=== PATIENT | female | born 1980 | race Caucasian/White ===

== ENCOUNTER 2021-02-04 08:56 | Inpatient (IN) | payer MEDICAID ==
[~2021-02-04] VITALS: Ht 162.6 cm; Wt 61.5 kg
[2021-02-04] MEDS: LORazepam 2 MG TABLET PO PRN ×2 (12:40→20:45)
[2021-02-04 13:01] VITALS: BP 125/78
[2021-02-04 16:12] VITALS: BP 102/73
[2021-02-04 20:44] VITALS: BP 124/73
[2021-02-04] MEDS: ZOLPIDEM TARTRATE 10 MG TABLET PO PRN (20:45)
[2021-02-05 00:59] VITALS: BP 120/68
[2021-02-05 08:20] VITALS: BP 116/55
[2021-02-05] MEDS: LORazepam 2 MG TABLET PO PRN ×2 (09:55→17:15)
[2021-02-05] MEDS: DULoxetine HCL 20 MG CAPSULE PO SCH (10:35)
[2021-02-05] MEDS: NICOTINE 21 MG/24 HOUR PATCH TD SCH (11:42)
[2021-02-05] MEDS ORDERED: NICOTINE 14 MG/24 HOUR PATCH TD PRN (14:15)
[2021-02-05] MEDS ORDERED: DOCUSATE SODIUM 100 MG CAPSULE PO PRN (14:15)
[2021-02-05] MEDS ORDERED: ALBUTEROL SULFATE HFA 90 MCG/PUFF 8 GM INHALER IH PRN (14:15)
[2021-02-05] MEDS ORDERED: ACETAMINOPHEN 325 MG TABLET PO PRN (14:15)
[2021-02-05] MEDS ORDERED: PETROLATUM,WHITE 28 GM JELLY TP PRN (14:15)
[2021-02-05] MEDS ORDERED: LOPERAMIDE HCL 2 MG CAPSULE PO PRN (14:15)
[2021-02-05] MEDS ORDERED: MAG HYDROX/AL HYDROX/SIMETH ES 30 ML SUSPENSION UDCUP PO PRN (14:15)
[2021-02-05] MEDS ORDERED: ONDANSETRON HCL 4 MG TABLET PO PRN (14:15)
[2021-02-05] MEDS ORDERED: CloNIDine HCL 0.1 MG TABLET PO PRN (14:15)
[2021-02-05] MEDS ORDERED: GuaiFENesin/D-METHORPHAN [SUGAR-FREE] 200-20MG/10 ML SYRUP UDCUP PO PRN (14:15)
[2021-02-05] MEDS ORDERED: MAGNESIUM HYDROXIDE SUSPENSION 30 ML UDCUP PO PRN (14:15)
[2021-02-05 16:53] VITALS: BP 102/64
[2021-02-05] MEDS: IBUPROFEN 400 MG TABLET PO PRN (19:27)
[2021-02-05] MEDS: ZOLPIDEM TARTRATE 10 MG TABLET PO PRN (20:15)
[2021-02-06 00:51] VITALS: BP 100/68
[2021-02-06] MEDS: LORazepam 2 MG TABLET PO PRN ×4 (05:01→23:11)
[2021-02-06 08:09] VITALS: BP 124/81
[2021-02-06] MEDS: NICOTINE 21 MG/24 HOUR PATCH TD SCH (08:49)
[2021-02-06] MEDS: DULoxetine HCL 20 MG CAPSULE PO SCH (08:49)
[2021-02-06] MEDS: IBUPROFEN 400 MG TABLET PO PRN (16:22)
[2021-02-06 16:38] VITALS: BP 118/76
[2021-02-06] MEDS: ZOLPIDEM TARTRATE 10 MG TABLET PO PRN (21:48)
[2021-02-07 00:33] VITALS: BP 125/62
[2021-02-07] MEDS ORDERED: DULO20CA27 PO (07:38)
[2021-02-07 08:21] VITALS: BP 119/73
[2021-02-07] MEDS: DULoxetine HCL 20 MG CAPSULE PO SCH (08:34)
[2021-02-07] MEDS: NICOTINE 21 MG/24 HOUR PATCH TD SCH (08:35)
== END 2021-02-07 10:00 | disposition home or self-care (01) | DRG 751 ==
LOC: B3A 10:46 → B2S 02-06 13:00
DX: F33.2 Major depressive disorder, recurrent severe without psychotic features (principal); F14.20 Cocaine dependence, uncomplicated; I95.9 Hypotension, unspecified; K59.00 Constipation, unspecified; E28.2 Polycystic ovarian syndrome; F19.10 Other psychoactive substance abuse, uncomplicated
CPT/HCPCS: Z7610